=== PATIENT | female | born 1985 | race Caucasian/White ===

== ENCOUNTER 2017-05-19 12:12 | Emergency (ER) | payer BC, OTHER ==
--- NOTE | 2017-05-19 12:33 | Emergency Department Record ---
History of Present Illness - General Chief complaint: Lower Extremity Pain Stated complaint: LEFT LEG SWELLING Time Seen by Provider: 05/19/17 12:18 Source: Patient Mode of Arrival: Ambulatory - History of Present Illness Initial comments: 31 yo female presents with two red warm areas on the left lower leg since last Friday. The areas are warm, some clearish discharge with small areas of surrounding redness. No fevers. No streaking up the leg. She has local pain around the distal leg to the ankle. No swelling or redness of the ankle itself. No joint warmth. She started Keflex without any improvement of the symptoms. She has a history of arthritis as well. It has been over a year since being on Plaquenil. No current immune modulating medications. No fevers. MD Complaint: Extremity pain, Extremity swelling Onset/Timin -: Days(s) Location: Left, Ankle History of Same: No -: Yes Arthralgia, Yes Myalgia Severity scale (1-10): 8 Quality: Aching Consistency: Constant Improves with: Movement, Other Worsens with: Rest Associated Symptoms: Arthralgias - Related Data Home Medications Medication Instructions Recorded Confirmed Last Taken Cephalexin [Keflex] 500 mg PO TID 05/19/17 05/19/17 05/19/17 Ferrous Sulfate [Iron] 1 cap PO DAILY 05/19/17 05/19/17 05/19/17 Multivit with Calcium,Iron,Min 1 each PO DAILY 05/19/17 05/19/17 2 Days Ago [One Daily Women's] ~05/17/17 Tramadol HCl [Ultram] 50 mg PO BID 05/19/17 05/19/17 05/19/17 Previous Rx's Medication Instructions Recorded Clindamycin HCl 300 mg PO QID #28 capsule 05/19/17 Allergies Allergy/AdvReac Type Severity Reaction Status Date / Time celecoxib [From Celebrex] Allergy HIVES Verified 05/19/17 12:26 diclofenac Allergy ITCHING Verified 05/19/17 12:26 Travel Screening - Travel/Exposure Within Last 30 Days Have you traveled within the last 30 days?: No Review of Systems Constitutional: Denies: Chills, Fever, Malaise, Weakness Eyes: Denies: Eye discharge, Eye pain, Photophobia ENT: Denies: Congestion, Throat pain Respiratory: Denies: Cough, Dyspnea, Hemoptysis, Stridor, Wheezes Cardiovascular: Denies: Chest pain, Syncope Endocrine: Denies: Fatigue Gastrointestinal: Denies: Abdominal pain, Constipation, Diarrhea, Nausea, Vomiting Genitourinary: Denies: Dysuria, Urgency Musculoskeletal: Reports: Arthralgia, Myalgia. Denies: Back pain, Joint swelling, Neck pain Skin: Reports: As per HPI, Change in color, Rash. Denies: Bruising Neurological: Denies: Confusion Psychiatric: Denies: Anxiety Hematological/Lymphatic: Denies: Easy bleeding, Easy bruising, Swollen glands Past Medical History - SOCIAL HISTORY Smoking Status: Current every day smoker Alcohol Use: Rare Drug Use: None - RESPIRATORY Hx Respiratory Disorders: No - CARDIOVASCULAR Hx Cardio Disorders: Yes Comment:: murmur - NEURO Hx Neuro Disorders: No - GI Hx GI Disorders: Yes Hx Liver Disease: Yes (fatty liver) Comment:: gastritis - Hx Genitourinary Disorders: Yes Hx Kidney Stones: Yes - ENDOCRINE Hx Endocrine Disorders: No - MUSCULOSKELETAL Hx Arthritis: Yes - PSYCH Hx Psych Problems: Yes Hx Anxiety: Yes - HEMATOLOGY/ONCOLOGY Hx Hematology/Oncology Disorders: No Family Medical History Any Significant Family History?: No Physical Exam - General General Appearance: Alert, Oriented x3, Cooperative, No acute distress Limitations: No limitations - Head Head exam: Normal inspection - Eye Eye exam: Normal appearance, PERRL - ENT ENT exam: Normal exam Ear exam: Normal external inspection Nasal Exam: Normal inspection Mouth exam: Normal external inspection - Neck Neck exam: Normal inspection - Respiratory Respiratory exam: Normal lung sounds bilaterally. negative: Respiratory distress - Cardiovascular Cardiovascular Exam: Regular rate, Normal rhythm, Normal heart sounds Peripheral Pulses: 2+: Dorsalis Pedis (L) - Rectal Rectal exam: Deferred - exam: Deferred - Extremities Extremities exam: Full ROM, Normal capillary refill, Tenderness (over the two sores), Other (The ankle is normal to inspection, no swelling or redness, no joint irritability, no abnormal warmth. Full ROM of the ankle without any pain. she has pain over the pustules). negative: Normal inspection, Pedal edema Image of Full Body: 1 - 2cm scabbed papular dry pustule, no weeping. NO fluctuance, no streaking. mildly tender 2 - 2cm erythematous dry, scabbed papular pustule, no fluctuance, no streaking , full ROM of the ankle and achilles - Neurological Neurological exam: Alert, Normal gait, Oriented X3, Reflexes normal - Psychiatric Psychiatric exam: Normal affect, Normal mood - Skin Skin exam: Other (pustules as noted) Course Vital Signs 05/19/17 12:16 Temperature 98.5 F Pulse Rate 70 Respiratory 16 Rate Blood Pressure 108/81 Pulse Ox 100 - Reevaluation(s) Reevaluation #1: the patient is afebrile, full ROM of the joint she has two small (2cm) erythematous soft tissue papules that have scabbed, not fluctuant NO joint irritability. She does have pain so XR ordered 05/19/17 12:53 Reevaluation #2: XR reviewed. No acute process. Benign appearing sclerosis of the medial malleolus. No mention of STS or joint space changes. 05/19/17 13:18 Disposition Disposition: Discharge Clinical Impression: Cellulitis Qualifiers: Site of cellulitis: extremity Site of cellulitis of extremity: lower extremity Laterality: left Qualified Code(s): L03.116 - Cellulitis of left lower limb Disposition: Home, Self-Care Condition: (1) Good Instructions: Cellulitis (ED) Additional Instructions: Call your doctor to be seen with in 48 hours Return if worse, fever or concerns Change your antibiotic to Clindamycin Add Motrin or Naprosyn as well for pain control You have a skin culture that will be available in about 2 days. Call your doctor for follow up Prescriptions: Clindamycin HCl 300 mg PO QID #28 capsule Forms: Patient Portal Access Time of Disposition: 13:19 Quality - Quality Measures Quality Measures: N/A - Blood Pressure Screening View Details: Yes Blood Pressure Classification: Pre-Hypertensive BP Reading Systolic Measurement: 108 Diastolic Measurement: 81 Screening for High Blood Pressure: < Pre-Hypertensive BP, F/U Documented > [ [id number]] Pre-Hypertensive Follow-up Interventions: Referral to alternative/primary care provider.
[2017-05-19] MEDS: KETOROLAC 30 MG/ML VIAL IM ONE (13:04)
[2017-05-19] MEDS: CLINDAMYCIN 150 MG CAP PO ONE (13:04)
--- NOTE | 2017-05-20 20:49 | RADIOLOGY REPORT ---
EXAM: ANKLE LEFT 3 VIEWS HISTORY: LEFT ANKLE PAIN STARTING THIS MORNING. NO HISTORY OF INJURY. TECHNIQUE: THREE VIEWS OF THE LEFT ANKLE. COMPARISON: NONE. FINDINGS: A small benign-appearing area of sclerosis within the medial malleolus of the distal tibia. No fracture, dislocation, or destructive lesion seen involving the ankle. No prominent soft tissue swelling. IMPRESSION: LEFT ANKLE APPEARS ESSENTIALLY NEGATIVE WITH A SMALL BENIGN-APPEARING AREA OF SCLEROSIS IN THE MEDIAL MALLEOLUS. JOB NUMBER: [id number] [facility]
== END 2017-05-19 13:36 | disposition home or self-care (01) ==
LOC: ER 12:12
DX: L03.116 Cellulitis of left lower limb (principal); M25.572 Pain in left ankle and joints of left foot
CPT/HCPCS: 96372; 99283; 99284; J1885